=== PATIENT | male | born 1945 | race Caucasian/White ===

== ENCOUNTER 2021-02-18 12:41 | Emergency (ER) | payer OTHER, MEDICARE ==
[~2021-02-18] VITALS: Ht 180.3 cm; Wt 90.7 kg
[2021-02-18] MEDS ORDERED: LORTAB 5/3255 MG PO (16:06)
[2021-02-18] MEDS ORDERED: TORADOL PO (16:06)
[2021-02-18 16:52] VITALS: BP 147/87
== END 2021-02-18 16:30 | disposition home or self-care (01) | DRG 556 ==
LOC: ED 12:41
DX: M25.562 Pain in left knee (principal); M25.551 Pain in right hip; M17.12 Unilateral primary osteoarthritis, left knee; W01.0XXA Fall on same level from slipping, tripping and stumbling without subsequent striking against object, initial encounter; Y93.K3 Activity, grooming and shearing an animal